=== PATIENT | female | born 1955 | race Caucasian/White ===

== ENCOUNTER 2016-07-20 05:14 | Inpatient (IN) | payer OTHER ==
[2016-06-29 09:13] VITALS: BMI 28.0
--- NOTE | 2016-06-29 09:52 | PAT Medication Instructions ---
Service Date Jun 29, 2016. Current Home Medication List Cholecalciferol (Vitamin D), 1 TAB PO QAM Nutritional Supplements (Juice Plus Fibre), 1 DOSE PO QAM Medication Instructions For Your Scheduled Surgery - Hold the following medications the morning of surgery: Cholecalciferol (Vitamin D), 1 TAB PO QAM Nutritional Supplements (Juice Plus Fibre), 1 DOSE PO QAM If you have any questions please call us at [phone] (Luz De La Cruz PA-C) or [phone] or [phone]
[2016-06-29 11:06] LABS: BASO % 0.7 %; BASO ABS # 0.03 K/uL (0-0.2); COMPLETE YES; EOS % 4.1 %; LYMPH % 42.9 %; MEAN CELL VOLUME 90.5 fL (80-100); MEAN CORPUSCULAR HEMOGLOBIN 30.2 pg (25-34); MEAN CORPUSCULAR HGB CONC 33.4 g/dl (32-36); MEAN PLATELET VOLUME 10.8 fL (7.4-10.4); MONO % 6.3 %; PLATELET COUNT 252 K/uL (130-400); RED BLOOD COUNT 4.53 M/uL (4.2-5.4); WHITE BLOOD COUNT 4.43 K/uL (4.8-10.8)
[2016-06-29 11:13] LABS: BUN/CREATININE RATIO 18.6 (10-20); CALCIUM 9.1 mg/dl (8.5-10.1); CREATININE 0.68 mg/dl (0.60-1.20); POTASSIUM 4.3 mmol/L (3.5-5.1)
--- NOTE | 2016-06-29 11:15 | DIAGNOSTIC IMAGING REPORT ---
TWO VIEW CHEST CLINICAL HISTORY: Preoperative examination. FINDINGS: PA and lateral chest radiographs are obtained. No prior studies are available for comparison at the time of dictation. The cardiomediastinal silhouette is unremarkable. The lungs and pleural spaces are clear. There is no pneumothorax. The skeletal structures are osteopenic. The bony thorax appears intact. IMPRESSION: No active disease in the chest. Electronically signed by: Jose Leiva M.D. 06/29/2016 11:13 AM Dictated Date/Time: 06/29/2016 11:13 AM
[2016-06-29 11:21] LABS: PARTIAL THROMBOPLASTIN RATIO 1.1; PROTHROMBIN TIME (PATIENT) 10.3 SECONDS (9.0-12.0)
--- NOTE | 2016-07-13 23:19 | HISTORY & PHYSICAL EXAMINATION ---
DATE OF ADMISSION: 07/20/2016 CHIEF COMPLAINT: Left hip and leg pain. HISTORY OF PRESENT ILLNESS: A 61-year-old female, self employed, who works in sales, who presents for treatment of her left hip. She has fairly a long history of left hip and back problems. First noticing this about 5 years ago. She was trying to do some yoga activities when the pain started to bother. She has been managed by pain clinic with various injections which have not really helped much over time. She has been through extensive physical therapy and chiropractic treatments without much relief. Over the past year, her pain has gotten worse. She describes thigh pain, groin pain, buttock pain. She has even tried acupuncture at [place] without relief. Pain has become more debilitating. The more she walks, the more she limps. She has difficulty putting her shoes and socks on that side. She would like to proceed with surgery. PAST MEDICAL HISTORY: Low back pain, SI joint issues. PAST SURGICAL HISTORY: 1. T\T\A. 2. Abdominoplasty and muscle repair. ALLERGIES: NAPROXEN, WHICH CAUSES GI UPSET; AND DERMABOND. CURRENT MEDICINES: 1. O2. 2. Juice Plus. SOCIAL HISTORY: A 61-year-old female. She is . Three children. Two kids live in [place]. She does not smoke. FAMILY HISTORY: Significant for colon cancer and heart disease. REVIEW OF SYSTEMS: Negative for diabetes, neurologic problems, vascular problems or bleeding disorders. No chest pain or shortness of breath. No history of DVT or PE. PHYSICAL EXAMINATION: GENERAL: Reveals a pleasant, middle-aged female. Looks to be in excellent health. HEENT: Benign. NECK: Supple. No lymphadenopathy. LUNGS: Clear to auscultation. HEART: Regular rate and rhythm. ABDOMEN: Soft, nontender, nondistended. EXTREMITIES: Grossly neurovascularly intact except as follows: Examination of left hip and leg reveal patient ambulates independently. She does have a slight limp. She about 0.5 cm short on the left side compared to the right. She does have pain with any type of hip motion. Hip is very stiff. Negative straight leg raise. She is neurologically intact. X-RAYS: X-rays of the left hip reviewed. It shows advanced left hip DJD. She has complete loss of her superior joint space. She has cystic change in the femoral head and subchondral sclerosis. She has got a large medial osteophyte. ASSESSMENT: A 61-year-old white female with a 5-year history of increasing left hip pain and discomfort, unresponsive to conservative treatment. Undoubtedly, she has some back issues as well but her hip is clearly a significant part of her pain profile. She failed conservative care. PLAN: We talked about treatment and she would like to have her hip replaced. We will take her to the operating room and do a left total hip replacement. The risks and benefits of this procedure were explained to patient including but not limited to DVT, PE, , infection, neurological injury, vascular injury, bleeding problem, pain, limited range of motion, stiffness, failure to relieve symptoms, incomplete relief of symptoms, need for further surgery in the future, fracture, leg length inequality, nerve palsy, etc. The patient understands and desires to proceed. Informed consent was obtained. The patient had preoperative workup. Chest x-ray was normal. EKG normal. Labs all pretty normal. She is planning to be discharged home using [facility] home health program.
[~2016-07-20] VITALS: Ht 162.6 cm; Wt 75.2 kg
[2016-07-20] VITALS (18 sets, daily range): BP systolic 88–190; BP diastolic 58–93; PULSE 74–99; TEMP 35.8–36.9; O2SAT 90–100; Ht 162.6 cm; Wt 75.2 kg
[~2016-07-20 05:14] MED LIST: CHOL100010 PO; NUTR-218 PO
[2016-07-20] MEDS ORDERED: CEFAZOLIN 2000 MG/60 ML D5W 60 ML IV SCH (06:00)
[2016-07-20] MEDS ORDERED: ACETAMINOPHEN 500 MG TAB PO SCH (06:00)
[2016-07-20] MEDS ORDERED: SCOPOLAMINE 1.5 MG TDSY TD SCH (06:00)
[2016-07-20] MEDS ORDERED: METOCLOPRAMIDE HCL 10 MG TAB PO SCH (06:00)
[2016-07-20] MEDS ORDERED: LACTATED RINGER'S 1000ML IV SCH (06:00)
[2016-07-20] MEDS ORDERED: LACTATED RINGER'S 1000ML 500 ML IV ONE (06:00)
[2016-07-20] MEDS ORDERED: FAMOTIDINE 20 MG TAB PO SCH (06:00)
[2016-07-20] MEDS ORDERED: LACTATED RINGER'S 1000ML 1,000 ML IV SCH (06:00)
[2016-07-20] MEDS ORDERED: TRANEXAMIC ACID INJ 1,000 MG in SODIUM CHLORIDE 0.9% 100ML 100 ML IV SCH ×2 (06:00→14:30)
[2016-07-20] MEDS ORDERED: GABAPENTIN 300 MG CAP PO SCH (06:00)
[2016-07-20] MEDS ORDERED: BACITRACIN 50000 UNIT VIAL ONE (06:33)
[2016-07-20] MEDS ORDERED: BUPIVACAINE/EPINEPHRINE 0.5% MPF 1:200,000 30 ML VIAL ONE (06:33)
[2016-07-20] MEDS ORDERED: MoRPHine SULFATE PF 1 MG/ML 10 ML AMP/VIAL ONE (06:43)
[2016-07-20] MEDS ORDERED: MIDAZOLAM HCL 1 MG/ML 2ML VIAL ONE (06:43)
[2016-07-20] MEDS ORDERED: LIDOCAINE HCL 2% 2 ML VIAL (20MG/ML) ONE (06:43)
[2016-07-20] MEDS ORDERED: PROPOFOL IV EMULSION 10 MG/ML 20 ML VIAL IV ONE ×2 (06:43→11:36)
[2016-07-20] MEDS ORDERED: FENTANYL CITRATE INJ 50 MCG/1 ML 2 ML VIAL ONE (06:44)
--- NOTE | 2016-07-20 06:49 | History & Physical Bridge Note ---
H&P Re-Evaluation Bridge Note: I have examined the patient, reviewed the History & Physical and in the interval since the performance of the History & Physical I have noted the following changes of clinical significance: No changes noted
[2016-07-20] MEDS ORDERED: BUPIVACAINE 0.5 % 5 MG/1 ML PF 10ML VIAL ONE (06:50)
[2016-07-20] MEDS ORDERED: PHENYLEPHRINE 100MCG/ML 5ML SYR IV PRN (07:15)
[2016-07-20] MEDS ORDERED: EpHEDrine SULFATE INJ 50 MG/ML AMP IV PRN ×2 (07:15→08:30)
[2016-07-20] MEDS ORDERED: HYDROmorphone INJ 2 MG/ML SYR/VIAL IV PRN (07:15)
[2016-07-20] MEDS ORDERED: ATROPINE SULFATE 0.1 MG/ML 5ML SYR IV PRN (07:15)
[2016-07-20] MEDS ORDERED: ONDANSETRON INJ 2 MG/ML 2 ML VIAL IV PRN ×3 (07:15→23:30)
[2016-07-20] MEDS ORDERED: PHENYLEPHRINE 100MCG/ML 5ML SYR ONE (07:50)
[2016-07-20] MEDS ORDERED: SODIUM CHLORIDE 0.9% 1000ML 1,000 ML IV PRN (08:25)
[2016-07-20] MEDS ORDERED: NALOXONE HCL INJ 1 MG in SODIUM CHLORIDE 0.9% 1000ML 1,000 ML IV PRN ×4 (08:25)
[2016-07-20] MEDS ORDERED: NALOXONE HCL INJ 0.08 MG in SYRINGE 1.8 ML IV PRN (08:25)
[2016-07-20] MEDS ORDERED: LACTATED RINGER'S 1000ML 500 ML IV PRN (08:25)
--- NOTE | 2016-07-20 08:26 | [facility] Post Operative Brief Note ---
Immediate Operative Summary Operative Date Jul 20, 2016. Pre-Operative Diagnosis Left hip degenerative joint disease Post-Operative Diagnosis Left hip degenerative joint disease Procedure(s) Performed Left Total Hip Arthroplasty Uncemented Surgeon Dr. Artem Kelly Quantitative Software Engineer Surgeon(s) Primo Wolff PA-C Estimated Blood Loss 250mL Findings Left Hip DJD Fluids (cc crystalloids) 1500 cc Specimens A: Left Femoral Head Drains None Anesthesia Spinal Complication(s) None Disposition Recovery Room / PACU
[2016-07-20] MEDS ORDERED: DiphenhydrAMINE HCL 50 MG/ML VIAL IV PRN ×2 (08:30→23:30)
[2016-07-20] MEDS ORDERED: MEPERIDINE HCL 25 MG/ML CARP IV PRN (08:30)
[2016-07-20] MEDS ORDERED: NO NARCOTICS OR SEDATIVES SCH (08:30)
[2016-07-20] MEDS ORDERED: ALUMINUM/MAGNESIUM/SIMETH (MAALOX MAX) 30 ML UDC PO PRN (08:30)
[2016-07-20] MEDS ORDERED: PROMETHAZINE HCL INJ 25 MG in SODIUM CHLORIDE 0.9% 50ML 50 ML IV PRN (08:30)
[2016-07-20] MEDS ORDERED: BISACODYL 10 MG SUPP PR PRN (08:30)
[2016-07-20] MEDS ORDERED: MAGNESIUM HYDROXIDE SUSP 30 ML UDC PO PRN (08:30)
[2016-07-20] MEDS ORDERED: MoRPHine SULFATE PF 1 MG/ML 10 ML AMP/VIAL EPI PRN (08:30)
[2016-07-20] MEDS ORDERED: SILVER SULFADIAZINE 1% CR 50 GM JAR EXT PRN (08:30)
[2016-07-20] MEDS ORDERED: NALOXONE HCL 0.4 MG/1 ML VIAL/CARP IV PRN (08:30)
[2016-07-20] MEDS ORDERED: NALBUPHINE HCL INJ 10 MG/ML AMP IV PRN (08:30)
--- NOTE | 2016-07-20 09:25 | DIAGNOSTIC IMAGING REPORT ---
AP PELVIS AND LEFT HIP 2 VIEWS CLINICAL HISTORY: Postop hip arthroplasty COMPARISON STUDY: No previous studies for comparison. FINDINGS: There are postsurgical changes of a total left hip arthroplasty. The acetabular and femoral components appear well seated. There is no dislocation. There are no acute fractures. There are overlying skin padmaja. There is air within soft tissues consistent with recent surgery. IMPRESSION: Postsurgical changes of a total left hip arthroplasty. Electronically signed by: Gopi Cheng M.D. 07/20/2016 9:22 AM Dictated Date/Time: 07/20/2016 9:22 AM
[2016-07-20] MEDS: D5W AND 1/2NSS + 20MEQ KCL 1,000 ML IV SCH ×2 (11:15→21:14)
--- NOTE | 2016-07-20 11:39 | Anesthesiology Progress Note ---
Anesthesia Post Op Note Date & Time Jul 20, 2016 at 11:38 Vital Signs Pain Intensity: 0.0 Vital Signs Past 12 Hours Date Time Temp Pulse Resp B/P Pulse Ox O2 Delivery O2 Flow Rate FiO2 07/20/16 10:54 88 16 103/71 07/20/16 10:40 16 99 07/20/16 10:24 93 16 98/65 98 Nasal Cannula 2.0 07/20/16 09:43 98 Nasal Cannula 2.0 07/20/16 09:40 98 Nasal Cannula 2.0 07/20/16 09:39 36.4 86 15 130/74 98 Nasal Cannula 2.0 07/20/16 09:27 36.8 07/20/16 09:25 127/63 07/20/16 09:22 94 16 85 07/20/16 09:22 94 07/20/16 09:20 103/59 07/20/16 09:20 97 Nasal Cannula 3 07/20/16 09:17 92 16 100 07/20/16 09:17 93 16 07/20/16 09:15 127/69 07/20/16 09:12 102 17 07/20/16 09:12 100 17 91 07/20/16 09:10 116/66 07/20/16 09:07 100 14 98 07/20/16 09:07 101 14 07/20/16 09:06 36.8 116/63 07/20/16 09:03 95 20 07/20/16 09:03 96 20 98 07/20/16 09:00 121/66 07/20/16 09:00 97 Room Air 07/20/16 08:58 92 17 100 07/20/16 08:58 92 17 07/20/16 08:55 109/58 07/20/16 08:53 92 13 07/20/16 08:53 92 13 100 07/20/16 08:52 97 14 07/20/16 08:52 97 14 99 07/20/16 08:50 114/56 07/20/16 08:47 95 14 100 07/20/16 08:47 96 14 07/20/16 08:46 111/59 07/20/16 08:42 92 14 100 07/20/16 08:42 94 14 07/20/16 08:40 85 16 110/58 99 Nasal Cannula 3 07/20/16 08:30 80 16 112/60 99 Nasal Cannula 3 07/20/16 08:22 36.3 76 16 108/67 99 Nasal Cannula 3 07/20/16 05:37 36.9 99 18 155/93 97 Room Air Notes Mental Status: alert / awake / arousable, participated in evaluation Pt Amnestic to Procedure: Yes Nausea / Vomiting: adequately controlled Pain: adequately controlled Airway Patency, RR, SpO2: stable & adequate BP & HR: stable & adequate Hydration State: stable & adequate Anesthetic Complications: no major complications apparent
[2016-07-20] MEDS ORDERED: IMPACT LIQ 1000 ML BAG PO PRN (12:00)
[2016-07-20] MEDS ORDERED: BOOST BREEZE NUTRITION DRINK 1 BOX PO SCH (12:00)
[2016-07-20] MEDS: KETOROLAC TROMETHAMINE 15 MG/ML VIAL IV. SCH ×3 (12:02→23:32)
[2016-07-20] MEDS: CEFAZOLIN IV 1,000 MG in DEXTROSE 5% 50ML 50 ML IV SCH ×2 (15:35→23:31)
[2016-07-20] MEDS: CHECK SCOPOLAMINE PATCH PLACEMENT SCH ×2 (15:36→23:31)
--- NOTE | 2016-07-20 17:48 | PROGRESS NOTE ---
DATE: 07/20/2016 SUBJECTIVE: A 61-year-old white female postop from a left total hip replacement. She is doing well. She feels wiped out. She did not get much sleep for the past couple days as she has been traveling. No pain. No chest pain or shortness of breath. Not feeling dizzy or lightheaded. OBJECTIVE: VITAL SIGNS: Temperature 36.3. Vital signs stable. PHYSICAL EXAMINATION: GENERAL: Reveals a healthy, pleasant middle-aged female. She is sitting up in bed, looks pretty comfortable. I had to wake her when I went in the room this afternoon. LUNGS: Clear to auscultation. HEART: Regular rate and rhythm. ABDOMEN: Soft, nontender, nondistended. EXTREMITIES: Grossly neurovascularly intact except as follows: Examination of the left hip reveals the dressing to be clean, dry and intact. Leg lengths were equal. She can dorsiflex and plantarflex her foot appropriately. She is neurologically intact. Hip is located. ASSESSMENT: A 61-year-old white female postop from a left total hip replacement, doing well. Hip is located. She is neurologically intact. Pain is controlled. PLAN: 1. DVT prophylaxis including thigh-high TEDs, SCDs, and aspirin twice a day. 2. PT/OT. Weightbearing as tolerated. Left total hip protocol. 3. Pain control, doing pretty well with current pain regimen. 4. IV antibiotics x24 hours. 5. Disposition: Plan to discharge to home with some home health once adequately recovered. TRISHA
[2016-07-20] MEDS: FERROUS GLUCONATE 324 MG TAB PO SCH (19:07)
[2016-07-20] MEDS: ACETAMINOPHEN 500 MG TAB PO SCH (19:08)
[2016-07-20] MEDS: ASPIRIN 325 MG ECTAB PO SCH (21:14)
[2016-07-20] MEDS ORDERED: ZOLPIDEM TARTRATE 5 MG TAB PO PRN (23:30)
[2016-07-20] MEDS ORDERED: DC INTRASPINAL MORPHINE ONE (23:30)
[2016-07-20] MEDS ORDERED: MoRPHine SULFATE 2 MG/ML CARP IV PRN (23:30)
[2016-07-20] MEDS ORDERED: METOCLOPRAMIDE HCL INJ 5 MG/ML 2 ML VIAL IV PRN (23:30)
[2016-07-21] VITALS (9 sets, daily range): BP systolic 84–108; BP diastolic 57–73; PULSE 78–93; TEMP 36.8–37.3; O2SAT 93–98
[2016-07-21] MEDS: ACETAMINOPHEN 500 MG TAB PO SCH ×3 (02:08→17:53)
[2016-07-21] MEDS: KETOROLAC TROMETHAMINE 15 MG/ML VIAL IV. SCH ×4 (06:00→23:34)
[2016-07-21 06:20] LABS: BASO % 0.4 %; BASO ABS # 0.03 K/uL (0-0.2); COMPLETE YES; HEMATOCRIT 34.4 % (37-47); IG% 0.1 %; LYMPH % 18.1 %; MEAN CORPUSCULAR HEMOGLOBIN 29.7 pg (25-34); MEAN CORPUSCULAR HGB CONC 32.3 g/dl (32-36); MEAN PLATELET VOLUME 10.6 fL (7.4-10.4); NEUT % 69.4 %; PLATELET COUNT 188 K/uL (130-400); RED BLOOD COUNT 3.74 M/uL (4.2-5.4); WHITE BLOOD COUNT 7.72 K/uL (4.8-10.8)
[2016-07-21] MEDS: D5W AND 1/2NSS + 20MEQ KCL 1,000 ML IV SCH (06:32)
[2016-07-21 07:00] LABS: BUN/CREATININE RATIO 9.5 (10-20); CALCIUM 8.3 mg/dl (8.5-10.1); CREATININE 0.59 mg/dl (0.60-1.20); POTASSIUM 4.1 mmol/L (3.5-5.1)
[2016-07-21] MEDS: CHECK SCOPOLAMINE PATCH PLACEMENT SCH ×3 (08:29→23:28)
[2016-07-21] MEDS: ASPIRIN 325 MG ECTAB PO SCH ×2 (08:30→20:35)
[2016-07-21] MEDS: TAPENTADOL ER 50 MG TABCR PO SCH ×2 (08:30→20:35)
[2016-07-21] MEDS: OXYCODONE HCL IR 5 MG TAB (IMMEDIATE RELEASE) PO PRN (08:31)
[2016-07-21] MEDS: PANTOprazole SOD 40 MG TAB PO SCH (08:31)
[2016-07-21] MEDS: FERROUS GLUCONATE 324 MG TAB PO SCH ×3 (08:31→17:53)
[2016-07-21] MEDS: CHOLECALCIFEROL 1000 INTER.UNIT TAB PO SCH (08:31)
[2016-07-21] MEDS: MULTIVITAMIN TAB PO SCH (08:31)
[2016-07-21] MEDS: DOCUSATE SODIUM 100 MG CAP PO SCH ×2 (08:31→20:35)
[2016-07-21] MEDS ORDERED: RXC5 PO (08:34)
[2016-07-21] MEDS ORDERED: FRRG PO (08:34)
[2016-07-21] MEDS ORDERED: ACET-1138 PO (08:34)
[2016-07-21] MEDS ORDERED: ASPEC325 PO (08:34)
--- NOTE | 2016-07-21 08:36 | Discharge Instructions ---
Discharge Instructions Date of Service Jul 21, 2016. Admission Reason for Admission: Left Hip Degenerative Joint Disease Discharge Discharge Diagnosis / Problem: Left Hip REplacement Discharge Goals Goal(s): Decrease discomfort, Improve function, Increase independence, Improve disease control, Therapeutic intervention Activity Recommendations Activity Limitations: per Instructions/Follow-up section (Total Hip PRecautions ) Weightbearing Status: Left weightbearing . Instructions / Follow-Up Instructions / Follow-Up ACTIVITY RECOMMENDATIONS: Physical Therapy: * Aggressive physical therapy is not usually needed. You will learn to take care of yourself safely and walk. * Follow the "Hip Precautions Instructions." * In some cases, the social insurance adviser at the hospital will arrange to have a therapist come to your house for the first couple of weeks to help you learn these skills. * You need to practice on your own or with the help of a family member as needed. * When you learn these skills, most of the therapy can be done on your own. Home Exercise: * You were shown a series of exercises in the hospital. Do these exercises three to four times each day including the exercises you were shown in physical therapy. Walking: * Get up and walk several times each day. For the first four weeks, try not to stand or walk for more than one hour at a time. If you do stand or walk for more than one hour, you will not hurt anything, but your leg will likely swell. * As you feel comfortable, you may change from the walker or crutches to a cane and then to independent walking. MEDICATIONS: New Medicine: * You will likely be taking one or more of these medicines: 1. Oxycodone - Take, as directed, when you need it, every four to six hours to control your pain. 2. Iron Sulfate - Take three times each day for the month after surgery to help you replace the blood lost during surgery. 3. Aspirin - Thins your blood to lessen the chance of forming a blood clot. * The most common side effects of pain medicine and iron are nausea and constipation. If nausea or constipation is too much of a problem or if you have any questions about your new medicines or doses, call [facility] at [phone]. We will try to help you manage these issues. VERY IMPORTANT TO READ AND REVIEW" Pain: * The immediate post-operative period after hip replacement surgery is often quite painful. * You are given a prescription for pain medicine. You should take it, as directed, when you need it, especially before physical therapy and before going to bed. Pain that interferes with sleep is very common and can last several months. * You will likely need pain medicine for the first two to four weeks. It will not stop all of the pain. The pain will lessen and as you feel better, you may change to milder pain medicine such as Tylenol. * The most common side effects of pain medicine are nausea and constipation, so don't take more than you need. SPECIAL CARE INSTRUCTIONS: TEDs/Elastic Stockings: * The white elastic stockings help limit swelling and prevent blood clots from forming in your legs. The more you wear them, the more they work. * Wear them for six weeks. Prevention of Infection: * Take antibiotics one hour before any dental cleaning, dental work, urological procedure, gastrointestinal procedure or any invasive surgery in order to prevent your new joint from getting infected. * You may get the antibiotics from the doctor performing the procedure or you may call our office at before and we will call in a prescription to the pharmacy of your choice. Things to Watch For: * Drainage from the incision site that occurs more than one week after your surgery. * Severely increased leg pain or swelling. * Increased redness at the incision site. * Fever above 102 degrees Fahrenheit. * Unusual chest pain or shortness of breath. * Unusual pain or burning with urination. Call [facility] at with any of the above problems or if you have any questions about your medicines or recovery. FOLLOW UP VISIT: Make an appointment to see your doctor for approximately two weeks after surgery for a progress check and staple removal by calling the office at . Current Hospital Diet Patient's current hospital diet: Regular Diet Discharge Diet Recommended Diet: Regular Diet Procedures Procedures Performed: Left Total Hip Arthroplasty Uncemented Pending Studies Studies pending at discharge: no Medical Emergencies . Who to Call and When: Medical Emergencies: If at any time you feel your situation is an emergency, please call [phone] immediately. . Non-Emergent Contact Non-Emergency issues call your: Surgeon . "Provider Documentation" section prepared by Artem Kelly. . VTE Core Measure Inpt VTE Proph given/why not?: Other Anticoagulation, T.E.D. Stockings, SCD's
--- NOTE | 2016-07-21 08:44 | PROGRESS NOTE ---
DATE: 07/21/2016 SUBJECTIVE: A 61-year-old female postop day 1 from left total hip replacement. She is doing pretty well. Struggling a little bit getting in and out of bed and she cannot lift her leg. Pain has been controlled. No chest pain or shortness of breath. Nauseated yesterday, better this morning. OBJECTIVE: VITAL SIGNS: Temperature 37.0. Vital signs stable. PHYSICAL EXAMINATION: GENERAL: Reveals a healthy, pleasant middle-aged female. She is sitting up at her bedside and looks pretty comfortable. LUNGS: Clear to auscultation. HEART: Regular rate and rhythm. ABDOMEN: Soft, nontender, nondistended. EXTREMITIES: Grossly neurovascularly intact as except as follows. Examination of left hip and leg reveals the dressing to be clean, dry and intact. Hip is located. Thigh is soft and supple. She can dorsiflex and plantarflex her foot appropriately. NEUROLOGIC: Intact. LABORATORY DATA: Hemoglobin 11.1, hematocrit 34.4. Electrolytes are stable. ASSESSMENT: A 61-year-old female postop day 1 from left total hip replacement, doing pretty well. Pain is controlled. She is having trouble lifting her leg which is normal at this point. PLAN: 1. DVT prophylaxis including thigh-high TEDs, SCDs, and aspirin twice a day. 2. PT/OT. Weightbearing as tolerated. Left total hip protocol. 3. Pain control. Doing pretty well with current pain regimen. 4. Disposition: Plan to discharge to home with some home health once adequately recovered.
[2016-07-21] MEDS ORDERED: BOOST BREEZE NUTRITION DRINK 1 BOX PO SCH (09:00)
[2016-07-21] MEDS ORDERED: IMPACT LIQ 1000 ML BAG PO SCH (09:00)
[2016-07-22] MEDS: ACETAMINOPHEN 500 MG TAB PO SCH ×2 (01:32→09:57)
[2016-07-22] MEDS: KETOROLAC TROMETHAMINE 15 MG/ML VIAL IV. SCH (01:32)
[2016-07-22 07:28] VITALS: BP 98/59; PULSE 95; TEMP 36.9; O2SAT 92
[2016-07-22] MEDS: PANTOprazole SOD 40 MG TAB PO SCH (08:59)
[2016-07-22] MEDS: ASPIRIN 325 MG ECTAB PO SCH (08:59)
[2016-07-22] MEDS: CHOLECALCIFEROL 1000 INTER.UNIT TAB PO SCH (08:59)
[2016-07-22] MEDS: MULTIVITAMIN TAB PO SCH (08:59)
[2016-07-22] MEDS: DOCUSATE SODIUM 100 MG CAP PO SCH (08:59)
[2016-07-22] MEDS: FERROUS GLUCONATE 324 MG TAB PO SCH ×2 (08:59→11:44)
[2016-07-22] MEDS: TAPENTADOL ER 50 MG TABCR PO SCH (09:00)
--- NOTE | 2016-07-22 09:09 | PROGRESS NOTE ---
DATE: 07/22/2016 DATE: 07/22/2016. SUBJECTIVE: A 61-year-old white female postop day 2 from left hip placement. She is doing pretty well. Feeling better this morning. She was bothered by kind of some nausea and hypotension the past day or so, but better this morning. Pain is controlled. Denies any chest pain or shortness of breath. Not feeling dizzy or lightheaded. OBJECTIVE: VITAL SIGNS: Temperature 36.9. Vital signs stable. PHYSICAL EXAMINATION: GENERAL: Reveals a healthy pleasant, middle-aged female. She is lying in bed, looks pretty comfortable. LUNGS: Clear to auscultation. HEART: Regular rate and rhythm. ABDOMEN: Soft, nontender, nondistended. EXTREMITIES: Grossly neurovascularly intact except as follows: Examination of left hip and leg reveals leg lengths to be equal. Hip is located. She can dorsiflex and plantarflex her foot appropriately. She is neurologically intact. ASSESSMENT: A 61-year-old female postop day 2 from left hip replacement, doing pretty well. Having a little bit of problems with some nausea but better today. Pain is controlled. Hip is located. She is neurologically intact. PLAN: 1. DVT prophylaxis including thigh-high TEDs, SCDs, and aspirin twice a day. 2. PT/OT. Weightbearing as tolerated. Left total hip protocol. 3. Pain control. Doing pretty well with current pain regimen. 4. Disposition. Plan to discharge to home with some home health later today.
[2016-07-22 09:52] VITALS: BP 98/59; PULSE 95; TEMP 36.9; O2SAT 92
[2016-07-22] MEDS: OXYCODONE HCL IR 5 MG TAB (IMMEDIATE RELEASE) PO PRN (11:45)
--- NOTE | 2016-07-23 07:03 | OPERATIVE REPORT ---
DATE OF OPERATION: 07/20/2016 SURGEON: Artem Kelly MD DRAGSAW OPERATOR: ELLIOT Freedman PREOPERATIVE DIAGNOSIS: Left hip degenerative joint disease. POSTOPERATIVE DIAGNOSIS: Same. PROCEDURE PERFORMED: Left ceramic on highly cross-linked polyethylene uncemented total hip arthroplasty. COMPLICATIONS: None. ESTIMATED BLOOD LOSS: 250 mL. FLUID REPLACEMENT: 1500 mL crystalloid fluid replacement. ANESTHESIA: Spinal. DRAINS: None. SPECIMENS: Left femoral head sent for pathology. OPERATIVE INDICATIONS: The patient is a 61-year-old very active female who has had a several year history of increasing left hip pain and discomfort. She has tried every modality available to try and manage this but was unsuccessful. She has now elected to proceed with total hip arthroplasty. OPERATIVE FINDINGS: Operative findings revealed advanced left hip DJD. She had grade 4 [id number] disease of the femoral head and acetabulum. She had some moderate to severe synovitis. She had a moderate sized joint effusion. OPERATIVE IMPLANTS: Operative implants consisted of: 1. Biomet G7 size 50-mm acetabular shell. 2. A 6.5 cancellous acetabular screws, one at 25 mm in length and one at 35 mm in length. 3. An apex hole eliminator. 4. A Biomet highly cross-linked polyethylene liner with 50 mm outer diameter and 32 mm inner diameter with a topete placed inferior and posterior. 5. A DePuy size 13.5 small stature femoral stem. 6. A +5/32 mm ceramic articular ball. OPERATIVE PROCEDURE: The patient was taken to the operating room, identified and placed on the operating table in the supine position. All contact areas were appropriately padded. IV antibiotics were provided by the anesthesia team. A spinal anesthetic had been implemented by the anesthesia team in the holding area. Titus catheter was placed in sterile fashion. The patient was then placed in the right lateral decubitus position. An axillary roll was placed. Stulberg hip positioner was used for positioning. All contact areas were meticulously padded and the left hip and leg were then prepped and draped in the usual sterile fashion. A posterolateral approach to the left hip was then performed through a curvilinear incision centered over the greater trochanter. Sharp dissection was carried through the subcutaneous tissue down to the level of the IT band and gluteal fascia. The IT band and gluteal fascia were then incised longitudinally in line with skin incision. The underlying greater trochanteric bursa was excised. The piriformis and external rotators were carefully tagged and taken off the posterior aspect of the femur. Great care was taken throughout the procedure to protect the sciatic nerve at all times. Posterior capsulotomy was then performed leaving a large flap for later repair. The hip was then dislocated. Femoral neck osteotomy cut was made with the final cut about 8 mm above the lesser trochanter. Femoral head was removed and sent for pathology. The femur was retracted anteriorly. Attention was then drawn to the acetabulum. The acetabular labrum was excised. The pulvinar fat was excised. Sequential reaming of the acetabulum was then performed beginning with a size 43 reamer and progressing up to 49. A 50-mm Biomet G7 acetabular shell was then placed in about 40 degrees of lateral opening and 20 degrees of anteversion. It was fixed with two 6.5 cancellous acetabular screws. A trial liner was placed. Attention was then drawn to the femur. The proximal femur was entered with [employer] cutter followed by canal finder and lateralizing reamer. Sequential reaming of the femur was then performed. I was quite surprised of the osteopenic nature of the bone both in the femur and the acetabulum as it reamed away pretty easily. I reamed up to a size 13. We got pretty good chatter there. I broached beginning with a size 10.5 small broach and progressing up to 13.5 small. We then trialed the hip. The +5/32 mm articular ball provided full stability and full extension and external rotation and flexion to 90 degrees and internal rotation to [address] a topete very inferior and posterior to maximize the stability in flexion as she is quite active. I really carefully assessed the leg lengths and the leg lengths appeared appropriate and equal. We spent quite a bit of time measuring and making some assessment to make sure this was as accurate as possible. We elected to place these implants. All trial implants were removed. An apex hole eliminator was placed. A highly crosslinked polyethylene liner with a topete placed inferior and posterior was then placed. A 13.5 small stature AML femoral stem was placed. I did ream partway down the canal with a 13.5 reamer as it initially had about 10 cm of scratch fit. I then placed a +5/32 mm ceramic articular ball. The hip was located and once again found to be stable. Attention was then drawn toward closing. The wound was irrigated with copious amounts of pulsatile lavage solution. I did inject locally with 60 mL of 0.5% Marcaine with epinephrine. The posterior capsule and external rotators were then repaired through drill holes in the posterior trochanter with #2 Ti-Cron suture. The ID band and gluteal fascia were then closed with #1 PDS suture in running fashion. The subcutaneous tissues were then closed with 2 layers with the deep layer #1 Vicryl suture and subcutaneous tissues with 2-0 Dexon suture in a buried interrupted fashion. Skin was then closed with skin padmaja. The leg was then cleaned and dried and a sterile dressing of Xeroform, 4 x 4, sterile ABD pad and foam tape was applied. The patient was then transferred to the recovery room in stable condition. The patient tolerated the procedure well with no complications. All needle and sponge counts were correct at the end of the operation. I was quite surprised by the osteopenic and soft nature of her bone in both the acetabulum and the femur. The acetabular bone as well as the femoral bone were reamed more easily than I would have suspected. Despite this, we got excellent fixation with both the acetabular and femoral components. I attest to the content of the Intraoperative Record and any orders documented therein. Any exceptions are noted below. TRISHA
--- NOTE | 2016-07-25 15:10 | DISCHARGE SUMMARY ---
ADMITTING PHYSICIAN AND SURGEON: Dr. Kelly. ADMITTING DIAGNOSIS: Left hip degenerative joint disease. SURGERY PERFORMED: Left total hip arthroplasty. SECONDARY DIAGNOSES: Low back pain, sacroiliac joint issues. CONSULTS: None obtained. HISTORY AND PHYSICAL EXAMINATION: Well documented in the patient's chart. HOSPITAL COURSE: The patient was admitted on 07/20/2016 underwent total hip arthroplasty, tolerated the procedure well. There were no complications. She was transferred to the PACU postoperatively and later to the orthopedic floor for further care. She was given Ancef for antibiotic prophylaxis, CRISTOFER stockings, SCDs and aspirin for DVT prophylaxis. Hemoglobin, hematocrit and vital signs were monitored during her hospital stay and remained stable. She did not require any blood transfusions. There were no complications. She had some nausea postoperatively which did improve. By postoperative day 2, she was tolerating a general diet, pain was controlled with oral pain medicine. She was participating in physical therapy and had no signs or symptoms of deep vein thrombosis. On postop day 2, she was discharged home in good condition, set up with home health services, given printed discharge instructions, prescriptions for Extra-Strength Tylenol, aspirin 325 mg b.i.d., iron supplement and oxycodone. Continue her home medications, continue physical therapy, weightbearing as tolerated, CRISTOFER stockings, total hip precautions. Follow up in 10-12 days or sooner if there are any problems or concerns.
== END 2016-07-22 13:31 | disposition home health service (06) | DRG 470 ==
LOC: ENRESERVDT → ENRESERVTM → C.ACU 05:14 → C.3E 06:45
PROVIDERS: ADMIT Orthopaedic Surgery Sports Medicine; ATTEND Orthopaedic Surgery Sports Medicine
PROC: 0SRB04A Replacement of Left Hip Joint with Ceramic on Polyethylene Synthetic Substitute, Uncemented, Open Approach (ICD-10-PCS; principal; 2016-07-20 07:00)
DX: M16.12 Unilateral primary osteoarthritis, left hip (principal)

== ENCOUNTER → 2017-03-12 | Outpatient (CLI) | payer OTHER ==
[~2017-03-12] MED LIST changes: +ACET-1138 PO; +ASPEC325 PO; +FRRG PO; +RXC5 PO
== END | disposition home or self-care (01) ==
LOC: C.PATHSPEC 14:19
PROVIDERS: ATTEND Obstetrics & Gynecology
DX: N72 Inflammatory disease of cervix uteri (principal); N87.9 Dysplasia of cervix uteri, unspecified